=== PATIENT | male | born 1975 | race Caucasian/White ===

== ENCOUNTER → 2021-07-30 07:44 | Outpatient (BNVA) | payer OTHER, SELFPAY | PROVIDERS: PCP Internal Medicine; Visit Provider Psychiatry & Neurology Neurology | DX: G44.309 Post-traumatic headache, unspecified, not intractable (principal); M54.2 Cervicalgia; R42 Dizziness and giddiness; Z79.899 Other long term (current) drug therapy | CPT/HCPCS: 99202 ==

== ENCOUNTER → 2021-09-24 13:58 | Outpatient (BNVA) | payer OTHER, SELFPAY | PROVIDERS: PCP Internal Medicine; Visit Provider Nurse Practitioner Family | DX: R42 Dizziness and giddiness (principal) | CPT/HCPCS: 99212 ==

== ENCOUNTER → 2021-10-29 12:54 | Outpatient (BNVA) | payer OTHER, SELFPAY | PROVIDERS: PCP Internal Medicine; Visit Provider Nurse Practitioner Family | DX: G44.309 Post-traumatic headache, unspecified, not intractable (principal); R42 Dizziness and giddiness | CPT/HCPCS: 99212 ==

== ENCOUNTER → 2021-12-10 12:55 | Outpatient (BNVA) | payer OTHER, SELFPAY | PROVIDERS: PCP Internal Medicine; Visit Provider Nurse Practitioner Family | DX: R42 Dizziness and giddiness (principal); G44.309 Post-traumatic headache, unspecified, not intractable; M54.2 Cervicalgia | CPT/HCPCS: 99212 ==

== ENCOUNTER 2022-01-07 10:09 | Outpatient (REF) | payer OTHER, SELFPAY ==
--- NOTE | ~2022-01-07 | XR_ITS ---
EXAMINATION: CERVICAL SPINE 3 VIEWS CLINICAL INFORMATION: Pain status-post injury 7 months prior. COMPARISON: None. TECHNIQUE: Frontal, lateral and odontoid views are obtained. FINDINGS: Vertebral body heights and alignment are normal. The disc spaces are well-maintained. No acute fracture or spondylolisthesis is seen. The posterior elements are intact. There is no prevertebral soft tissue swelling. The dens and C7-T1 interface are normal. XR/XR cervical spine 2V IMPRESSION: Negative examination.
== END 2022-01-07 10:10 | disposition home or self-care (01) ==
LOC: HO.XRAY 10:09
PROVIDERS: Visit Provider Nurse Practitioner Family
DX: M54.2 Cervicalgia (principal); G44.309 Post-traumatic headache, unspecified, not intractable
CPT/HCPCS: 72040; 99212

== ENCOUNTER → 2022-03-18 10:49 | Outpatient (BNVA) | payer OTHER, SELFPAY | PROVIDERS: PCP Internal Medicine; Visit Provider Nurse Practitioner Family | DX: S06.0X9A Concussion with loss of consciousness of unspecified duration, initial encounter (principal); R42 Dizziness and giddiness; M54.2 Cervicalgia; R20.0 Anesthesia of skin; R20.2 Paresthesia of skin; G44.309 Post-traumatic headache, unspecified, not intractable | CPT/HCPCS: 99212 ==

== ENCOUNTER 2022-04-12 13:13 | Outpatient (REF) | payer OTHER, SELFPAY ==
--- NOTE | ~2022-04-12 | MR_ITS ---
EXAMINATION: MR CERVICAL SPINE WITHOUT CONTRAST CLINICAL INFORMATION: Dizziness, fall, neck pain COMPARISON: None TECHNIQUE: MRI of the cervical spine was obtained using routine sequences without contrast. FINDINGS: Normal anatomic alignment. No suspicious marrow signal or focal osseous lesion. C3 vertebral body hemangioma. The vertebral body heights are maintained. The intervertebral discs are of normal height and signal. The cervical spinal cord is normal in caliber and signal No prevertebral edema. The anterior and posterior discoligamentous structures are intact. Limited evaluation of the soft tissues of the neck without demonstrated abnormalities. The flow voids of the major cervical vessels are maintained. Normal appearance of the cervicomedullary junction and visualized posterior fossa. Sphenoid sinus mucosal thickening. SPINAL LEVELS: C2-C3: No significant spinal canal or neural foraminal narrowing C3-C4: Small disc protrusion. No significant spinal canal or neural foraminal narrowing C4-C5: Right greater than left uncovertebral hypertrophy and mild facet arthropathy. Mild to moderate right neural foraminal narrowing. No significant spinal canal stenosis. C5-C6: Small disc protrusion, right greater than left uncovertebral hypertrophy, and mild facet arthropathy. No significant spinal canal stenosis. Mild to moderate right neural foraminal narrowing. C6-C7: No significant spinal canal or neural foraminal narrowing C7-T1: Small left central disc protrusion. No significant spinal canal or neural foraminal narrowing MR/MR cervical spine wo con IMPRESSION: 1. No evidence of traumatic injury of the cervical spine. 2. Mild degenerative changes of the cervical spine as detailed above. No significant spinal canal stenosis, cord compression, cord signal abnormality, or high-grade neural foraminal narrowing.
== END 2022-04-12 13:14 | disposition home or self-care (01) ==
LOC: HO.MRI 13:13
PROVIDERS: Visit Provider Nurse Practitioner Family
DX: M54.2 Cervicalgia (principal); R42 Dizziness and giddiness; R20.2 Paresthesia of skin; R20.0 Anesthesia of skin
CPT/HCPCS: 72141

== ENCOUNTER → 2022-05-18 13:20 | Outpatient (BNVA) | payer OTHER, SELFPAY | PROVIDERS: PCP Internal Medicine; Visit Provider Nurse Practitioner Family | DX: M54.2 Cervicalgia (principal); G44.309 Post-traumatic headache, unspecified, not intractable; R42 Dizziness and giddiness | CPT/HCPCS: 99212 ==

== ENCOUNTER → 2022-06-27 14:15 | Outpatient (BNVA) | payer OTHER, SELFPAY | PROVIDERS: PCP Internal Medicine; Visit Provider Internal Medicine | DX: M54.2 Cervicalgia (principal); G44.309 Post-traumatic headache, unspecified, not intractable; S13.4XXD Sprain of ligaments of cervical spine, subsequent encounter | CPT/HCPCS: 99202 ==

== ENCOUNTER → 2022-07-18 14:37 | Outpatient (BNVA) | payer OTHER, SELFPAY | PROVIDERS: PCP Internal Medicine; Visit Provider Nurse Practitioner Family | DX: F07.81 Postconcussional syndrome (principal); G44.309 Post-traumatic headache, unspecified, not intractable; M54.2 Cervicalgia; R42 Dizziness and giddiness; R20.0 Anesthesia of skin; R20.2 Paresthesia of skin | CPT/HCPCS: 99212 ==

== ENCOUNTER → 2022-08-01 14:23 | Outpatient (BNVA) | payer OTHER, SELFPAY | PROVIDERS: PCP Internal Medicine; Visit Provider Internal Medicine | DX: M47.812 Spondylosis without myelopathy or radiculopathy, cervical region (principal); S13.4XXA Sprain of ligaments of cervical spine, initial encounter | CPT/HCPCS: 99212 ==

== ENCOUNTER 2022-08-31 06:04 | Outpatient (REF) | payer OTHER, SELFPAY ==
--- NOTE | ~2022-08-31 | FL_ITS ---
EXAMINATION: XR FLUOROSCOPY WITH IMAGES CLINICAL INFORMATION: Spondylosis without myelopathy or radiculopathy cervical region. COMPARISON: None available. TECHNIQUE: Fluoroscopy Supervised By: Dr. Pratik Root. Fluoroscopy Time: 0.1. Cumulative Dose: 2 mGy. DAP: 0.2 Gy-cm2. Images: 2. FINDINGS: 2 images demonstrate needle placement and contrast injection adjacent to the left lateral cervical spine. FL/FL guidance in treatment room IMPRESSION: Fluoroscopy guidance for pain management procedure.
== END 2022-08-31 06:05 | disposition home or self-care (01) ==
LOC: CF 06:04
PROVIDERS: Visit Provider Internal Medicine
DX: M47.812 Spondylosis without myelopathy or radiculopathy, cervical region (principal)
CPT/HCPCS: 64490; 64491

== ENCOUNTER → 2022-09-02 09:07 | Outpatient (BNVA) | payer OTHER, SELFPAY | PROVIDERS: PCP Internal Medicine; Visit Provider Internal Medicine | DX: M47.812 Spondylosis without myelopathy or radiculopathy, cervical region (principal); Z98.890 Other specified postprocedural states | CPT/HCPCS: 99212 ==

== ENCOUNTER → 2022-09-22 14:27 | Outpatient (BNVA) | payer OTHER, SELFPAY | PROVIDERS: PCP Internal Medicine; Visit Provider Nurse Practitioner Family | DX: G44.309 Post-traumatic headache, unspecified, not intractable (principal); R42 Dizziness and giddiness; M54.2 Cervicalgia; G47.9 Sleep disorder, unspecified | CPT/HCPCS: 99212 ==

== ENCOUNTER → 2022-10-14 10:45 | Outpatient (BNVA) | payer OTHER, SELFPAY | PROVIDERS: PCP Internal Medicine; Visit Provider Internal Medicine | DX: M47.812 Spondylosis without myelopathy or radiculopathy, cervical region (principal); Z79.899 Other long term (current) drug therapy | CPT/HCPCS: 99212 ==

== ENCOUNTER 2022-11-18 09:53 | Outpatient (AMB) | payer OTHER, SELFPAY ==
--- NOTE | 2022-11-18 09:53 | MHC.OFFVIS ---
Intake Intake Visit Reasons: discuss RFA Allergies No Known Allergies Allergy (Verified 10/14/22 10:59) HPI discuss RFA HPI Details 47-year-old male presenting on tele health visit for discussion of RFA of cervical medial branches. He still continues to endorse neck pain (more on the left side than the right side). Past procedure: 08/31/2022: left diagnostic C3-C4-C5 MBB: 60% relief for about three hours. PFSH Medical History Concussion Surgical History H/O hernia repair Family History Mother Cancer Social History Alcohol intake: current Alcohol intake frequency: a few times a week Alcohol type: beer, wine and hard liquor Patient Tobacco Use Status: Former Tobacco user Substance Use Type: Caffiene Review of Systems Const All systems reviewed & are unremarkable except as noted in HPI and below Results Reviewed Results Reviewed: No imaging is available for review. Assessment & Plan Assessment & Plan (1) Cervical facet joint syndrome: Code(s): M47.812 - Spondylosis without myelopathy or radiculopathy, cervical region Plan We will seek approval for repeat bilateral diagnostic C3-C4-C5 cervical medial branch blocks to establish reproducibility prior to proceeding with radiofrequency ablation of the cervical medial branches. Once we have obtained approval, we will schedule the patient for the aforementioned procedure. The patient is in agreement with the plan. Justification for interventional therapy: ? Patient with average pain > 6/10 ? Patient has exhausted conservative therapy . First diagnostic injection on the left side provided 60% relief for >[address] Root by Martinez Roblero, nuclear medicine medical director, on 11/18/2022. I, Dr. Root, have personally reviewed and agree with the information entered by the scribe. Telehealth Telehealth Location of provider rendering services: practice address Location of patient: address on file Patient Identification confirmed using: Name, : Yes Telehealth method: voice only Patient verbally consented to treatment: Yes Patient verbally consented to billing insurance company: Yes Patient informed of any privacy concerns related to visit: Yes Minutes spent on Phone/Video with Pt.: 7 Coding Level of Care Code Tele New Pt Level 3 (03066) Diagnoses Cervical facet joint syndrome M47.812
== END 2022-11-18 09:54 | disposition home or self-care (01) ==
LOC: HO.PMC 09:53
PROVIDERS: PCP Internal Medicine; Visit Provider Internal Medicine
DX: M47.812 Spondylosis without myelopathy or radiculopathy, cervical region (principal)
CPT/HCPCS: 99213

== ENCOUNTER → 2022-11-18 09:53 | Outpatient (BNVA) | payer OTHER, SELFPAY | PROVIDERS: PCP Internal Medicine; Visit Provider Internal Medicine ==

== ENCOUNTER 2022-12-28 06:05 | Outpatient (REF) | payer OTHER, SELFPAY ==
--- NOTE | ~2022-12-28 | FL_ITS ---
EXAMINATION: XR FLUOROSCOPY WITH IMAGES CLINICAL INFORMATION: Spondylosis without myelopathy or radiculopathy, cervical region. Bilateral cervical injection. COMPARISON: None available. TECHNIQUE: Fluoroscopy Supervised By: Dr. Pratik Root. Fluoroscopy Time: 0.4 minutes. Cumulative Dose: 3.89 mGy. DAP: 0.4446 Gycm2. Images: 4. FINDINGS: Images demonstrate needle placement and contrast injection adjacent to the bilateral lateral C3-C4 and C5 vertebrae FL/FL guidance in treatment room IMPRESSION: Fluoroscopy guidance for pain management procedure
== END 2022-12-28 06:06 | disposition home or self-care (01) ==
LOC: CF 06:05
PROVIDERS: Visit Provider Internal Medicine
DX: M47.812 Spondylosis without myelopathy or radiculopathy, cervical region (principal)
CPT/HCPCS: 64490; 64491

== ENCOUNTER 2022-12-28 08:30 | Outpatient (AMB) | payer OTHER, SELFPAY ==
[2022-12-28 08:35] VITALS: BP 122/88; PULSE 81; RESP 14; O2SAT 97
--- NOTE | 2022-12-28 08:35 | MHC.OFFVIS ---
Intake Vital Signs 12/28/22 08:35 12/28/22 09:37 BP 122/88 122/82 Blood Pressure Location Rt brachial Rt brachial Position Sitting Sitting Respiration 14 14 Pulse 81 81 Pulse Source Pulse Oximeter Pulse Oximeter Pulse Oximetry (%) 97 97 Oxygen Delivery Method Room Air Room Air Intake Visit Reasons: Tam Dx C3-C4-C5 MBB Allergies No Known Allergies Allergy (Verified 12/28/22 08:36) HPI Tam Dx C3-C4-C5 MBB HPI Details Patient presents for scheduled procedure. Denies any recent cough, cold, infection, fever or other significant changes in medical history since last office visit. PFSH Medical History Concussion Surgical History H/O hernia repair Family History Mother Cancer Social History Alcohol intake: current Alcohol intake frequency: a few times a week Alcohol type: beer, wine and hard liquor Patient Tobacco Use Status: Former Tobacco user Substance Use Type: Caffiene Physical Exam Vital Signs: Last Vital Signs Pulse 81 12/28/22 09:37 Resp 14 12/28/22 09:37 BP 122/82 12/28/22 09:37 Pulse Ox 97 12/28/22 09:37 Oxygen Delivery Method Room Air 12/28/22 09:37 Office Procedures Cervical/Thoracic Facet Inj Details: Diagnostic Cervical Medial Branch Block, Bilateral C3, C4, C5 medial branches After obtaining written consent, pre-procedure blood pressure and pulse were recorded and are in the nursing record for review. The patient was placed in a lateral position. The respective cervical area was prepped with chloraprep and draped in sterile fashion. The skin over the target medial branch nerves was anesthetized with 0.5% lidocaine. A 25 gauge 1.5 inch needle was inserted into the target medial branch nerve under fluoroscopic guidance. No paresthesias were elicited with needle placement and aspiration was negative for blood and CSF. Next, 0.2cc of Isovue 300 was injected to verify positioning. Next 0.5 ml 0.5% ropivicaine was injected (0.5 cc total per level). The identical procedure was performed at the remaining levels. The skin was cleansed and a sterile bandage was applied. Following the procedure the patient's vital signs were stable. The patient tolerated the procedure well and no complications were encountered. Following the procedure the patient's vital signs were stable. The patient was discharged home in good condition with post-procedural instructions. Time Out: Immediately prior to the procedure, the following was verbally confirmed that there is a signed consent form and that the correct patient, planned procedure, site and side are consistent with documentation and that necessary equipment and/or blood products are available prior to the start of the case. Complications: none EBL: <5 cc 45411 - second level, with Fluoroscopy Procedure code (CPT) selection complete Assessment & Plan Assessment & Plan (1) Cervical facet joint syndrome: Code(s): M47.812 - Spondylosis without myelopathy or radiculopathy, cervical region Plan Patient is status post bilateral diagnostic cervical C3, C4, C5 MBBs. Patient tolerated procedure well and was discharged home in stable condition with discharge instructions. All questions were answered. We will follow-up via telephone or in clinic to assess response to therapy. A follow-up appointment was made during today's visit. Orders: Orders FL guidance in treatment room Today M47.812 - Spondylosis without myelopathy or radiculopathy, cervical region Coding Level of Care Code Procedure Only Diagnoses Cervical facet joint syndrome M47.812 CPT Codes Facet Injection Cervical/Thoracic - CPT: 14682 - second level, with Fluoroscopy ([id number])
[2022-12-28 09:37] VITALS: BP 122/82; PULSE 81; RESP 14; O2SAT 97
== END 2022-12-28 09:41 | disposition home or self-care (01) ==
LOC: HO.PMCPRC 08:30
PROVIDERS: PCP Internal Medicine; Visit Provider Internal Medicine
DX: M47.812 Spondylosis without myelopathy or radiculopathy, cervical region (principal)
CPT/HCPCS: 64490; 64491

== ENCOUNTER 2022-12-30 11:39 | Outpatient (AMB) | payer OTHER, SELFPAY ==
[2022-12-30 11:53] VITALS: BP 98/64; PULSE 101; RESP 14; O2SAT 98; BMI 29.0
--- NOTE | 2022-12-30 11:53 | MHC.OFFVIS ---
Intake Vital Signs 12/30/22 11:53 Height 6 ft Weight 214 lb BMI 29.0 BP 98/64 Blood Pressure Location Lt brachial Position Sitting Respiration 14 Pulse 101 H Pulse Source Pulse Oximeter Pulse Oximetry (%) 98 Oxygen Delivery Method Room Air Intake Visit Reasons: s/p janell Dx C3-C4-C5 MBB Allergies No Known Allergies Allergy (Verified 12/28/22 08:36) HPI s/p janell Dx C3-C4-C5 MBB HPI Details 47-year-old male is presenting today for a status post bilateral diagnostic C3-C4-C5 MBB. The patient reports 90% relief following the procedure for 8 hours. He reports return of sharp pain with side ways movements the following day. Past procedures: 12/28/22: Diagnostic Cervical Medial Branch Block, Bilateral C3, C4, C5 medial branches: >90% relief for 8 hours. 08/31/2022: Left diagnostic C3-C4-C5 MBB: 60% relief for about three hours. [facility] Medical History Concussion Surgical History H/O hernia repair Family History Mother Cancer Social History ) Alcohol intake: current Alcohol intake frequency: a few times a week Alcohol type: beer, wine and hard liquor Patient Tobacco Use Status: Former Tobacco user Substance Use Type: Caffiene Review of Systems Const All systems reviewed & are unremarkable except as noted in HPI and below Physical Exam Vital Signs: Last Vital Signs Pulse 101 H 12/30/22 11:53 Resp 14 12/30/22 11:53 BP 98/64 12/30/22 11:53 Pulse Ox 98 12/30/22 11:53 Oxygen Delivery Method Room Air 12/30/22 11:53 BMI result Body Mass Index 29.0 General: Appears afebrile. Alert and oriented. Mood and affect appropriate. Follows and participates in conversation appropriately. Respiratory effort is unlabored. Able to transition from sit to stand unassisted. Ambulates with bilaterally normal heel strike and toe off. Results Reviewed Results Reviewed: No imaging is available for review. Assessment & Plan Assessment & Plan (1) Cervical facet joint syndrome: Code(s): M47.812 - Spondylosis without myelopathy or radiculopathy, cervical region Plan Will schedule him for Left C3-C4-C5 medial branch RFA. Discussed the risks and benefits of the procedure with the patient in detail. All questions were answered. The patient is on board with the plan. We will file a PA for approval and keep him updated. Justification for interventional therapy: ? Patient with average pain > 6/10 ? Patient has exhausted conservative therapy including physical therapy, neuropathic medications, muscle relaxants and acetaminophen . Left-sided diagnostic injection provided 60% relief for >3 hours and bilateral diagnostic injections provided 90% relief for [address]. [address] Root by Martinez Roblero, director medical affairs, on 12/30/2022. I, Dr. Root, have personally reviewed and agree with the information entered by the scribe. Coding Level of Care Code Est Pt Level 3 (74523) Diagnoses Cervical facet joint syndrome M47.812
== END 2022-12-30 12:00 | disposition home or self-care (01) ==
PROVIDERS: PCP Internal Medicine; Visit Provider Internal Medicine
DX: M47.812 Spondylosis without myelopathy or radiculopathy, cervical region (principal)
CPT/HCPCS: 99213

== ENCOUNTER → 2022-12-30 11:39 | Outpatient (BNVA) | payer OTHER, SELFPAY | PROVIDERS: PCP Internal Medicine; Visit Provider Internal Medicine | DX: M47.812 Spondylosis without myelopathy or radiculopathy, cervical region (principal) | CPT/HCPCS: 99212 ==

== ENCOUNTER → 2023-01-23 14:30 | Outpatient (BNVA) | payer OTHER, SELFPAY | PROVIDERS: Visit Provider Nurse Practitioner Family | DX: G44.309 Post-traumatic headache, unspecified, not intractable (principal); R42 Dizziness and giddiness; M54.2 Cervicalgia; Z79.899 Other long term (current) drug therapy | CPT/HCPCS: 99212 ==

== ENCOUNTER 2023-02-08 12:42 | Day surgery (SDC) | payer OTHER, SELFPAY ==
--- NOTE | ~2023-02-08 | FL_ITS ---
EXAMINATION: XR FLUOROSCOPY WITH IMAGES CLINICAL INFORMATION: C3-C5 medial branch RFA. COMPARISON: None available. TECHNIQUE: Fluoroscopy Supervised By: Dr. Pratik Root. Fluoroscopy Time: 0.6 minutes. Cumulative Dose: 15.6 mGy. DAP: 1.69 Gycm2. Images: 3. FINDINGS: Images demonstrate instruments projecting over the posterior elements of C3, C4 and C5 FL/FL guidance in OR IMPRESSION: Fluoroscopy guidance for pain management procedure
[2023-02-08 13:09] VITALS: BP 122/78; PULSE 106; RESP 18; TEMP 36.2; O2SAT 96; BMI 28.5
--- NOTE | 2023-02-08 14:01 | MHC.SHP ---
Pre-Procedural Eval Section A Date of Service: 02/08/23 The patient is an INPATIENT: No Changes since office visit: Yes Patient answered all questions The History & Physical has been completed within 30 days and I have reviewed it.: No Section B Chief Complaint: Spondylosis without myelopathy or radiculopathy, Relevant Family History (Specify if Yes): No Relevant Social History: None Present Medications: see Short Stay Collaborative assessment Medical History: Significant History (cervical facet syndrome) History of Previous Operations: No relevant previous surgery Allergies: Allergies Allergy/AdvReac Type Severity Reaction Status Date / Time No Known Allergies Allergy Verified 12/28/22 08:36 Review of Systems Sugical H&P ROS: Negative: Constitution, Cardiovascular and Respiratory Exam Surgical H&P Exam: Normal: HEENT, Normal: Heart and Normal: Lungs Plan Diagnosis/Plan: Unchanged I have reviewed the history and physical and performed a pertinent physical examination on my patient. No changes have occurred unless specified. Time Spent With Patient Time: Total time managing care of this patient today ____ minutes.
--- NOTE | 2023-02-08 14:02 | PM.OP ---
Brief Operative Note Date of Service: 02/08/23 Pre-op diagnosis: Cervical spondylosis, cervical facet syndrome Post-op diagnosis: same Procedure: Radiofrequency lesioning cervical medial branch nerves, left C3, C4 and C5 Implants: None Surgeon: Pratik Root MD Anesthesia: local Was an Desktop Publishing Operator used for this Procedure?: No Estimated blood loss (mL): 1 Pathology: none sent Condition: stable Disposition: same day
--- NOTE | 2023-02-08 14:02 | W.PM.OPN ---
Operative Note Operative Note Date of Service: 02/08/23 Narrative: Radiofrequency lesioning cervical medial branch nerves, Left C3, C4 and C5 After obtaining written consent, pre-procedure blood pressure and heart rate were stable and recorded in the nursing record. The patient was placed in the prone position. The?cervical?area was prepped with chloraprep and draped in sterile fashion. The skin over the target for each medial branch nerve was anesthetized with 0.75% lidocaine. An 18 gauge radiofrequency cannula was advanced to each target site under fluoroscopic guidance. No paresthesias were elicited with needle placement and aspiration was negative for heme and CSF. Impedences were verified under 600 ohms. Sensory testing (50 Hz) and then motor testing (2 Hz) confirmed needle placement at each site within the appropriate voltage thresholds. Each site was injected with 0.5 ml 2% preservative-free lidocaine. Radiofrequency lesioning was performed for 90 seconds at 80 deg Celcius. The needle was removed, skin cleansed and a sterile bandage was applied. The patient tolerated the procedure well and no complications were encountered. Following the procedure the patient's vital signs were stable. The patient was discharged home in good condition with post-procedural instructions. Time Out: Immediately prior to the procedure, the following was verbally confirmed that there is a signed consent form and that the correct patient, planned procedure, site and side are consistent with documentation and that necessary equipment and/or blood products are available prior to the start of the case. Complications: none EBL: <5 cc
[2023-02-08 14:50] VITALS: BP 126/88; PULSE 73; RESP 14; TEMP 36.8; O2SAT 95
== END 2023-02-08 15:11 | disposition home or self-care (01) ==
PROVIDERS: PCP Internal Medicine; Visit Provider Internal Medicine
PROC: (CPT 64633; principal; 2023-02-08 14:20)
DX: M47.812 Spondylosis without myelopathy or radiculopathy, cervical region (principal); Z87.820 Personal history of traumatic brain injury; Z98.890 Other specified postprocedural states; Z87.891 Personal history of nicotine dependence
CPT/HCPCS: 64633; 64634; J2795

== ENCOUNTER → 2023-02-08 12:42 | Outpatient (BNV) | payer OTHER, SELFPAY | PROVIDERS: PCP Internal Medicine; Visit Provider Internal Medicine | DX: M47.812 Spondylosis without myelopathy or radiculopathy, cervical region (principal) | CPT/HCPCS: 64490; 64491 ==

== ENCOUNTER 2023-03-10 08:10 | Outpatient (AMB) | payer OTHER, SELFPAY ==
--- NOTE | 2023-03-10 08:21 | MHC.OFFVIS ---
Intake Vital Signs 03/10/23 08:22 Height 6 ft Weight 226 lb 4 oz BMI 30.7 BP 127/63 Blood Pressure Location Lt brachial Position Sitting Respiration 18 Pulse 88 Pulse Source Pulse Oximeter Pulse Oximetry (%) 98 Oxygen Delivery Method Room Air Intake Visit Reasons: s/p Left C3-C4-C5 MB RFA/confirmed Allergies No Known Allergies Allergy (Verified 03/10/23 08:22) HPI HPI Comments History of Present Illness Details Nick is a very pleasant 47-year-old male who presents to the office today status post left C3-C4-C5 RFA 02/08/23. The patient reports 90% relief with improvement in movement and function. He continues with pain to on the right side of his neck, worse with lateral flexion. He also suffers from tinnitus of the left ear that has not changed since the RFA. Past procedures: 02/08/23: left C3-C4-C5 RFA: 90% pain relief 12/28/22: Diagnostic Cervical Medial Branch Block, Bilateral C3, C4, C5 medial branches: >90% relief for 8 hours. 08/31/2022: Left diagnostic C3-C4-C5 MBB: 60% relief for about three hours. [facility] Medical History Concussion Surgical History H/O hernia repair Family History Mother Cancer Social History Alcohol intake: current Alcohol intake frequency: a few times a week Alcohol type: beer, wine and hard liquor Patient Tobacco Use Status: Former Tobacco user Substance Use Type: Caffiene Review of Systems Const All systems reviewed & are unremarkable except as noted in HPI and below Physical Exam Vital Signs: Last Vital Signs Pulse 88 03/10/23 08:22 Resp 18 03/10/23 08:22 BP 127/63 03/10/23 08:22 Pulse Ox 98 03/10/23 08:22 Oxygen Delivery Method Room Air 03/10/23 08:22 BMI result Body Mass Index 30.7 General: awake, alert, oriented. Answers questions appropriately. Fully engaged in examination. Skin: warm, dry, intact HEENT: Normocephalic. Hearing intact. Cardiac: External chest normal in appearance. Respiratory: No cough, audible wheezing or stridor. Abdomen: without gross distension. MS: Cervical: pain increase with right lateral flexion Neurological: Oriented to person, place, time and situation. Thought process intact. No gait abnormalities appreciated. Psychiatric: Appropriate mood and affect. Good judgment and insight. Assessment & Plan Assessment & Plan (1) Cervical facet joint syndrome: Code(s): M47.812 - Spondylosis without myelopathy or radiculopathy, cervical region Plan Nick is a very pleasant 48 year old male who presented to the office today for follow up status post left C3 C4 C5 RFA. Patient reports 90% pain relief with improvement in function and mobility since the procedure. Discussed return to full duty, patient works for the [email or web address]. Currently has no contact with inmate order due to the injury he sustained on his neck. Recommend continuing on no contact with inmate order until he follows up with Dr Root. Follow up with Dr. Root in 1 month, sooner if needed. Coding Level of Care Code Est Pt Level 3 (74348) Diagnoses Cervical facet joint syndrome M47.812
[2023-03-10 08:22] VITALS: BP 127/63; PULSE 88; RESP 18; O2SAT 98; BMI 30.7
== END 2023-03-10 08:31 | disposition home or self-care (01) ==
PROVIDERS: PCP Internal Medicine; Visit Provider Registered Nurse Emergency
DX: M47.812 Spondylosis without myelopathy or radiculopathy, cervical region (principal)
CPT/HCPCS: 99213

== ENCOUNTER → 2023-03-10 08:10 | Outpatient (BNVA) | payer OTHER, SELFPAY | PROVIDERS: PCP Internal Medicine; Visit Provider Registered Nurse Emergency | DX: M47.812 Spondylosis without myelopathy or radiculopathy, cervical region (principal); H93.12 Tinnitus, left ear; F07.81 Postconcussional syndrome; Z87.891 Personal history of nicotine dependence | CPT/HCPCS: 99212 ==

== ENCOUNTER 2023-04-14 09:13 | Outpatient (AMB) | payer OTHER, SELFPAY ==
--- NOTE | 2023-04-14 09:16 | MHC.OFFVIS ---
Intake Vital Signs 04/14/23 09:18 Height 6 ft Weight 218 lb BMI 29.6 BP 134/83 Blood Pressure Location Lt brachial Position Sitting Respiration 12 Pulse 80 Pulse Source Pulse Oximeter Pulse Oximetry (%) 99 Oxygen Delivery Method Room Air Intake Visit Reasons: 1 MONTH FOLLOW UP/LVM Allergies No Known Allergies Allergy (Verified 04/14/23 09:19) Medication List - Last Reconciled 04/14/23 by Little Omalley LPN acetaminophen (Tylenol) 325 mg PO QID PRN amitriptyline 50 mg PO BEDTIME 30 days cyclobenzaprine 5 mg PO BEDTIME magnesium oxide 400 mg PO DAILY 30 days melatonin 3 - 6 mg (1 - 2 x 3 mg) PO BEDTIME 90 days ondansetron 4 mg PO Q8H 30 days vitamin B comp and C no.3 (B Complex Plus Vitamin C) 1 cap PO DAILY HPI 1 MONTH FOLLOW UP/LVM HPI Details 48-year-old male who presents today to the office for a follow-up. The patient reports moderate relief in left sided symptoms following the procedure. He has been experiencing mild numbness and pain at the site. The patient's pain is different from the pain prior to the procedure. He states that his sharp pain has improved but that he continues to experience constant pain on his sides. His right side is more bothersome. His pain is better at the start of the day but progresses over the course of the day. He is taking cyclobenzaprine with minimal benefit. He is not performing any physical therapy or home exercises. He either sleeps on his back or on his sides. Past procedures: 02/08/23: Radiofrequency lesioning cervical medial branch nerves, Left C3, C4 and C5: 50% relief. 12/28/22: Diagnostic Cervical Medial Branch Block, Bilateral C3, C4, C5 medial branches: >90% relief for 8 hours. 08/31/2022: Left diagnostic C3-C4-C5 MBB: 60% relief for about three hours. [facility] Medical History Concussion Surgical History H/O hernia repair Family History Mother Cancer Social History (Reviewed 09/22/22 @ 14:34 by Lissett Anderson Alcohol intake: current Alcohol intake frequency: a few times a week Alcohol type: beer, wine and hard liquor Patient Tobacco Use Status: Former Tobacco user Substance Use Type: Caffiene Review of Systems Const All systems reviewed & are unremarkable except as noted in HPI and below Physical Exam Vital Signs: Last Vital Signs Pulse 80 04/14/23 09:18 Resp 12 04/14/23 09:18 BP 134/83 04/14/23 09:18 Pulse Ox 99 04/14/23 09:18 Oxygen Delivery Method Room Air 04/14/23 09:18 BMI result Body Mass Index 29.6 General: Appears afebrile. Alert and oriented. Mood and affect appropriate. Follows and participates in conversation appropriately. Respiratory effort is unlabored. Able to transition from sit to stand unassisted. Ambulates with bilaterally normal heel strike and toe off. Cervical extension is limited and reproduces pain in the midline. Cervical facet loading reproduces pain on the right side and around the shoulder area and left side of the occipital region. Results Reviewed Results Reviewed: No imaging is available for review. Assessment & Plan Assessment & Plan (1) Cervical facet joint syndrome: Code(s): M47.812 - Spondylosis without myelopathy or radiculopathy, cervical region Plan We discussed trying lifestyle modification as a possible treatment option for the pain. I recommended trying good pillows and mattresses at night. Also, it is advised to perform gentle cervical arching and traction exercises at home. The patient will follow up in a month. If these measures fail, we can consider a round of MBBs/RFA on the right and potentially PNS on the left depending on which side is worse. Cervical facet PRP injections would be another option. Scribed for Dr. Root by Martinez Roblero, certified ophthalmic medical technician, on 04/14/2023. I, Dr. Root, have personally reviewed and agree with the information entered by the scribe. Coding Level of Care Code Est Pt Level 3 (74202) Diagnoses Cervical facet joint syndrome M47.812
[2023-04-14 09:18] VITALS: BP 134/83; PULSE 80; RESP 12; O2SAT 99; BMI 29.6
== END 2023-04-14 09:47 | disposition home or self-care (01) ==
PROVIDERS: PCP Internal Medicine; Visit Provider Internal Medicine
DX: M47.812 Spondylosis without myelopathy or radiculopathy, cervical region (principal)
CPT/HCPCS: 99213

== ENCOUNTER → 2023-04-14 09:13 | Outpatient (BNVA) | payer OTHER, SELFPAY | PROVIDERS: PCP Internal Medicine; Visit Provider Internal Medicine | DX: M47.812 Spondylosis without myelopathy or radiculopathy, cervical region (principal) | CPT/HCPCS: 99212 ==

== ENCOUNTER 2023-05-19 09:52 | Outpatient (AMB) | payer OTHER, SELFPAY ==
--- NOTE | 2023-05-19 09:59 | MHC.OFFVIS ---
Intake Vital Signs 05/19/23 10:00 Height 6 ft Weight 220 lb BMI 29.8 BP 146/98 H Blood Pressure Location Lt radial Position Sitting Respiration 12 Pulse 100 Pulse Source Pulse Oximeter Pulse Oximetry (%) 98 Oxygen Delivery Method Room Air Intake Visit Reasons: 1 Month Follow Up/confirmed Allergies No Known Allergies Allergy (Verified 05/19/23 10:01) Medication List - Last Reconciled 05/19/23 by Little Omalley LPN acetaminophen (Tylenol) 325 mg PO QID PRN amitriptyline 50 mg PO BEDTIME 30 days cyclobenzaprine 5 mg PO BEDTIME magnesium oxide 400 mg PO DAILY 30 days melatonin 3 - 6 mg (1 - 2 x 3 mg) PO BEDTIME 90 days ondansetron 4 mg PO Q8H 30 days vitamin B comp and C no.3 (B Complex Plus Vitamin C) 1 cap PO DAILY HPI 1 Month Follow Up/confirmed HPI Details 48-year-old male who presents today to the office for a one-month follow-up. His neck pain has significantly improved. He has noticed mild numbness since RFA, which is not bothersome. He started using the neck extension device with good benefit. 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 He avoids sudden movements of the neck at work. He has worker's compensation insurance. His nerve stimulator was denied by [employer] in the past. He still has tinnitus, which has not improved. He also noticed mild, occasional headaches and memory issues. Past procedures: 02/08/23: Radiofrequency lesioning cervical medial branch nerves, Left C3, C4 and C5: 50% to 60% relief ongoing. 12/28/22: Diagnostic Cervical Medial Branch Block, Bilateral C3, C4, C5 medial branches: >90% relief for 8 hours. 08/31/2022: Left diagnostic C3-C4-C5 MBB: 60% relief for about three hours. [facility] Medical History Concussion Surgical History H/O hernia repair Family History Mother Cancer Social History Alcohol intake: current Alcohol intake frequency: a few times a week Alcohol type: beer, wine and hard liquor Patient Tobacco Use Status: Former Tobacco user Substance Use Type: Caffiene Review of Systems Const All systems reviewed & are unremarkable except as noted in HPI and below Physical Exam Vital Signs: Last Vital Signs Pulse 100 05/19/23 10:00 Resp 12 05/19/23 10:00 BP 146/98 H 05/19/23 10:00 Pulse Ox 98 05/19/23 10:00 Oxygen Delivery Method Room Air 05/19/23 10:00 BMI result Body Mass Index 29.8 General: Appears afebrile. Alert and oriented. Mood and affect appropriate. Follows and participates in conversation appropriately. Respiratory effort is unlabored. Able to transition from sit to stand unassisted. Ambulates with bilaterally normal heel strike and toe off. Results Reviewed Results Reviewed: No imaging is available for review. Assessment & Plan Assessment & Plan (1) Cervical facet joint syndrome: Code(s): M47.812 - Spondylosis without myelopathy or radiculopathy, cervical region Plan At this time his pain symptoms of the neck are relatively well-controlled. He never got full relief but is satisfied with his current pain level. For his symptoms that may start to worsen in the future, we discussed trying PRP injections to the cervical facets as a possible treatment option for cervical facet syndrome at a young age. The patient will reach out to us if he wants to schedule it. Follow as needed. Scribed for Dr. Root by Martinez Roblero, medical lab scientist, on 05/19/2023. I, Dr. Root, have personally reviewed and agree with the information entered by the scribe. Coding Level of Care Code Est Pt Level 3 (28271) Diagnoses Cervical facet joint syndrome M47.812
[2023-05-19 10:00] VITALS: BP 146/98; PULSE 100; RESP 12; O2SAT 98; BMI 29.8
== END 2023-05-19 10:23 | disposition home or self-care (01) ==
PROVIDERS: PCP Internal Medicine; Visit Provider Internal Medicine
DX: M47.812 Spondylosis without myelopathy or radiculopathy, cervical region (principal)
CPT/HCPCS: 99213

== ENCOUNTER → 2023-05-19 09:52 | Outpatient (BNVA) | payer OTHER, SELFPAY | PROVIDERS: PCP Internal Medicine; Visit Provider Internal Medicine | DX: M47.812 Spondylosis without myelopathy or radiculopathy, cervical region (principal) | CPT/HCPCS: 99212 ==

== ENCOUNTER 2023-06-15 14:33 | Outpatient (AMB) | payer OTHER, SELFPAY ==
--- NOTE | 2023-06-15 14:53 | A.OFFVIS_ITS ---
Intake Vital Signs 06/15/23 14:56 Height 6 ft Weight 226 lb BMI 30.6 BP 120/80 Blood Pressure Location Lt brachial Position Sitting Pulse 94 Pulse Source Pulse Oximeter Pulse Oximetry (%) 96 Oxygen Delivery Method Room Air Intake Visit Reasons: 4 month follow up - LVM Intake Note: Patient presents for 4 month f/u. Allergies No Known Allergies Allergy (Verified 05/19/23 10:01) HPI HPI Comments History of Present Illness Details 47 y/o male patient presents for follow up of post concussion syndrome and cervicalgia. Pt reports that his headache and neck pain has not improved, having daily frontal and left occipital tension headache. And the tension headache can be triggered by lateral neck movement and noise. He uses Excedrin for headache treatment, but not using everyday. He is followed by pain management for neck pain. Pt states that neck pain still not fully relieved but more manageble. He is on amitriptyline 50 mg and cyclobenzaprine 5 mg qHS. Pt also takes magnesium 400 mg and vitmain B complex for migraine prevention. Pt reports that melatonin 3 mg helps him sleep better. He still has constant tinnitus, vestibular therapy was not helpful. [facility] Medical History Concussion Surgical History H/O hernia repair Family History Mother Cancer Social History Alcohol intake: current Alcohol intake frequency: a few times a week Alcohol type: beer, wine and hard liquor Patient Tobacco Use Status: Former Tobacco user Substance Use Type: Caffiene Review of Systems Const All systems reviewed & are unremarkable except as noted in HPI and below Physical Exam Vital Signs: Last Vital Signs Pulse 94 06/15/23 14:56 BP 120/80 06/15/23 14:56 Pulse Ox 96 06/15/23 14:56 Oxygen Delivery Method Room Air 06/15/23 14:56 BMI result Body Mass Index 30.6 Const General: cooperative and no acute distress Nutritional Appearance: obese Orientation/consciousness: patient oriented x3 Neck Other: moderate tightness of bilateral trapezius muscle and pain with lateral movement. Semispinalis Capitis muscle tenderness. L>R Neck: Yes full ROM and Yes supple Resp Effort & Inspection: normal respiratory effort and able to speak in complete sentences Neuro General: patient oriented x3 and CN's II-XI intact bilaterally Cognition (Neuro): normal cognition Gait exam (Neuro): Normal gait present Motor exam (neuro): 5/5 motor strength present throughout Psych Appearance: grossly normal Mental Status: mental status grossly normal Speech and movement: Normal speech and movement present Attitude: cooperative Assessment & Plan Assessment & Plan (1) Cervicalgia: Code(s): M54.2 - Cervicalgia (2) Post-concussion headache: Code(s): G44.309 - Post-traumatic headache, unspecified, not intractable Plan Advised patient to continue to take cyclobenzaprine 5 mg qHS for neck muscle tightness and pain. Continue to take amitirptyline to 50 mg. Continue to take magnesium 400 mg qHS, vitamin B2 400 mg qdaily for headache prevention. Will try topiramate 25 mg BID for headache prevention. Continue to follow up with pain management. Continue to practice good sleep hygiene. Continue melatonin 3 mg qHS. Medications: New topiramate 25 mg PO BID 60 tabs 4RF 30 days Coding Level of Care Code Est Pt Level 4 (87749) Diagnoses Cervicalgia M54.2 Post-concussion headache G44.309
[2023-06-15 14:56] VITALS: BP 120/80; PULSE 94; O2SAT 96; BMI 30.6
== END 2023-06-15 15:22 | disposition home or self-care (01) ==
PROVIDERS: PCP Internal Medicine; Visit Provider Nurse Practitioner Family
DX: M54.2 Cervicalgia (principal); G44.309 Post-traumatic headache, unspecified, not intractable
CPT/HCPCS: 99214

== ENCOUNTER → 2023-06-15 14:33 | Outpatient (BNVA) | payer OTHER, SELFPAY | PROVIDERS: PCP Internal Medicine; Visit Provider Nurse Practitioner Family | DX: M54.2 Cervicalgia (principal); G44.309 Post-traumatic headache, unspecified, not intractable; Z79.899 Other long term (current) drug therapy | CPT/HCPCS: 99212 ==

== ENCOUNTER 2023-10-18 14:30 | Outpatient (AMB) | payer OTHER, SELFPAY ==
[2023-10-18 14:32] VITALS: BP 128/92; PULSE 100; O2SAT 96; BMI 29.6
--- NOTE | 2023-10-18 14:32 | MHC.OFFVIS ---
Vital Signs 10/18/23 14:32 Height 6 ft Weight 218 lb 6 oz BMI 29.6 BP 128/92 H Blood Pressure Location Rt brachial Position Sitting Pulse 100 Pulse Source Pulse Oximeter Pulse Oximetry (%) 96 Intake Visit Reasons: 4 month follow up-LVM Intake Note: Patient presents for follow up Allergies No Known Allergies Allergy (Verified 10/18/23 14:35) Medication List - Last Reconciled 10/18/23 by FERNANDEZ Bills acetaminophen (Tylenol) 325 mg PO QID PRN amitriptyline 50 mg PO BEDTIME 30 days cyclobenzaprine 5 mg PO BEDTIME magnesium oxide 400 mg PO DAILY 30 days melatonin 3 - 6 mg (1 - 2 x 3 mg) PO BEDTIME 90 days ondansetron 4 mg PO Q8H 30 days topiramate 25 mg PO BID 30 days vitamin B comp and C no.3 (B Complex Plus Vitamin C) 1 cap PO DAILY HPI Comments Details: 48-yr-old male presents for f/u visit of work related post concussive syndrome and neck pain. Patient was previously seen by our colleague Kaitlyn Frausto NP. Pt reports that he was discharged from pain management, as he was not making gains in regards to his neck pain. The neck pain is left sided sharp or dull pain. Triggered by cervical movement. 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 He has been able to be little bit more physically active. He continues to have headaches. The headaches are left dull aching frontal or occipital, which come on suddenly. This is a/w left ear ringing, mild phonophobia, phonophobia, cognitive difficulties. Has not been having as much nausea w/ the headaches. These are triggered by louder environments or just come out of the blue. For instance, shift change at work can induce headache and associated symptoms. Headache is daily, comes and goes. Tylenol or Excedrin. Can still have bouts of dizziness. Still stumbles at times. He still has STM lapses and more word finding difficulties. 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 [facility] Medical History Concussion Surgical History H/O hernia repair Family History Mother Cancer Social History Alcohol intake: current Alcohol intake frequency: a few times a week Alcohol type: beer, wine and hard liquor Patient Tobacco Use Status: Former Tobacco user Substance Use Type: Caffiene Physical Exam Vital Signs: Last Vital Signs Pulse 100 10/18/23 14:32 BP 128/92 H 10/18/23 14:32 Pulse Ox 96 10/18/23 14:32 BMI result Body Mass Index 29.6 Const General: cooperative and no acute distress Resp Effort & Inspection: normal respiratory effort and able to speak in complete sentences Neuro Other: Alert and oriented x3 w/ some STM lapses. Photophobia Cranial nerves: Yes CN's II-XII intact bilaterally Psych Appearance: grossly normal Speech and movement: Normal speech and movement present Affect: normal affect Attitude: cooperative Assessment & Plan Assessment & Plan (1) Postconcussion syndrome: Code(s): F07.81 - Postconcussional syndrome Category: Medical (2) Vertigo: Code(s): R42 - Dizziness and giddiness Category: Medical (3) Cervicalgia: Code(s): M54.2 - Cervicalgia Category: Medical Plan For cervicalgia: Continue cyclobenzaprine 5 mg qHS prn neck muscle tightness and pain. Continue PT exercises. Continue to slowly increase physical activity. For overall postconcussive management: Trial loop earplugs- engage 2- as this may reduce phonophobia symptoms. Monitor cognition Monitor sleep For acute postconcussive migraine headache treatment: Trial Sumatriptan 100mg tab, 1/2 - 1 tab (50-100mg) at onset of headache, may repeat in 2 hours. Max of 2 tabs (200mg) per 24 hours. May adjunct with OTC Tylenol 650mg q 4 hours, Ibuprofen 600mg q 6 hours, or Naproxen 440mg q 12 hrs prn. For postconcussive migraine prevention treatment: Stop Topiramate- not effective and likely worsening cognitive s/s. Continue Amitirptyline 50 mg qhs- may be benefitting cervicalgia as well Continue Magnesium 400 mg qHS. Continue Vit B complex OTC. Trial propranolol ER 60 mg q.h.s.. Previous prevention treatment trials: Topiramate- ineffective and not tolerated. Future considerations: CGRP MaB Patient may continue to work full-time with the following restrictions: No inmate contact. Workers accommodation form completed today. Written instruction shared with patient. Follow-up in 3-4 months or sooner as needed. Medications: New propranolol ER 60 mg PO BEDTIME 30 days 30 caps 3RF sumatriptan succinate (0.5 - 1 x 100 mg) 50 - 100 mg orally at onset of headache, may repeat in 2 hrs PRN; max 2 tabs per day or 4 tabs/week (may take with Ibuprofen) 30 days 12 tabs 6RF migraine headache Refilled cyclobenzaprine 5 mg PO BEDTIME 30 tabs 6RF magnesium oxide 400 mg PO DAILY 30 days 30 tabs 6RF amitriptyline 50 mg PO BEDTIME 30 days 30 tabs 6RF Discontinued topiramate Discontinued Reason: Doctor's Order 25 mg PO BID 30 days 60 tabs 4RF Coding Level of Care Code Est Pt Level 4 (00922) Diagnoses Postconcussion syndrome F07.81 Vertigo R42 Cervicalgia M54.2
== END 2023-10-18 15:34 | disposition home or self-care (01) ==
PROVIDERS: PCP Internal Medicine; Visit Provider Nurse Practitioner Family
DX: F07.81 Postconcussional syndrome (principal); R42 Dizziness and giddiness; M54.2 Cervicalgia; Z04.2 Encounter for examination and observation following work accident
CPT/HCPCS: 99214

== ENCOUNTER → 2023-10-18 14:30 | Outpatient (BNVA) | payer OTHER, SELFPAY | PROVIDERS: PCP Internal Medicine; Visit Provider Nurse Practitioner Family | DX: F07.81 Postconcussional syndrome (principal); R42 Dizziness and giddiness; M54.2 Cervicalgia; Z79.899 Other long term (current) drug therapy | CPT/HCPCS: 99212 ==

== ENCOUNTER 2024-04-02 07:27 | Outpatient (AMB) | payer OTHER, SELFPAY ==
[2024-04-02 07:30] VITALS: BP 130/90
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
== END 2024-04-02 08:52 | disposition home or self-care (01) ==
PROVIDERS: PCP Internal Medicine; Visit Provider Nurse Practitioner Family
DX: F07.81 Postconcussional syndrome (principal); R42 Dizziness and giddiness; M54.2 Cervicalgia; R41.82 Altered mental status, unspecified; R47.89 Other speech disturbances
CPT/HCPCS: 99214

== ENCOUNTER → 2024-04-02 07:27 | Outpatient (BNVA) | payer OTHER, SELFPAY | PROVIDERS: PCP Internal Medicine; Visit Provider Nurse Practitioner Family | DX: F07.81 Postconcussional syndrome (principal); F09 Unspecified mental disorder due to known physiological condition; R42 Dizziness and giddiness; M54.2 Cervicalgia; R41.82 Altered mental status, unspecified; R47.89 Other speech disturbances | CPT/HCPCS: 99212 ==

== ENCOUNTER 2024-04-25 12:40 | Outpatient (REF) | payer OTHER, SELFPAY ==
[2024-04-25] MEDS: gadobutroL 10 ML VIAL IVPUSH (13:26)
== END 2024-04-25 12:41 | disposition home or self-care (01) ==
LOC: HO.MRI 12:40
PROVIDERS: PCP Internal Medicine; Visit Provider Nurse Practitioner Family
DX: R41.82 Altered mental status, unspecified (principal); R47.89 Other speech disturbances
CPT/HCPCS: 70553; A9585

== ENCOUNTER → 2024-06-06 11:33 | Outpatient (REF) | payer OTHER, SELFPAY ==
--- OUTSIDE RECORDS SUMMARY | 2024-06-06 11:36 | XMS_ITS | Clinical Summary ---
Author Organization [facility] ity Address [address] [place] [address] Care Team Providers Care Machine Binding Folder Name Role Phone Joseph Sears MD Primary Care Provider Allergies No known active allergies Active Problems Problem Noted Date Diagnosed Date HLD (hyperlipidemia) 10/05/2023 Chronic migraine without aur a without status migrainosus, not intractable 09/23/2022 Peyronie's disease 03/18/2021 Rash and nonspecific skin eruption 03/18/2021 Immunizations Name Administration Dates Next Due Moderna SARS-CoV-2 COVID-19, mRNA, LNP-S, preservative free 05/18/2021,06/13/2020,05/14/2020 Tdap Tetanus diptheria acell ular pertussis (Boostrix; Adacel) 7yo and older 09/23/2022 Surgical History Surgery Date Site/Laterality Comments FOOT SURGERY PROCEDURE: HISTORICAL FOOT SURGERY; COMMENT: as child HERNIA REPAIR PROCEDURE: HISTORICAL HERNIA REPAIR/UMB; COMMENT: 2016 COLONOSCOPY 11/03/2021 PROCEDURE: HISTORICAL COLONOSCOPY; COMMENT: negative OTHER SURGICAL HISTORY PROCEDURE: HISTORY OTHER; COMMENT: RFA cervical spine Medical History Medical History Date Comments Peyronie's disease DX:Peyronie's disease Family History Medical History Relation Name Comments No Known Problems Father Other: Other Maternal Grandmother Alzheim er's dementia Other cancer Mother ovarian in 30s Other: Other Mother stomach, liver cancer Brain Aneurysm Paternal Grandmother Prostate cancer Neg Hx Relation Name Status Comments Brother Alive Father Alive Maternal Grandfather Maternal Grandmother Mother Alive Paternal Grandfather Paternal Grandmother Social History Tobacco Use Types Packs/Day Years Used Date Smoking Tobacco: Former Cigarettes Smokeless Tobacco: Never Alcohol Use Standard Drinks/Week Comments Not Currently 14 (1 standard drink = 0.6 oz pu re alcohol) Sex and Gender Information Value Date Recorded Sex Assigned at Not on file Gender Identity Not on file Sexual Orientation Not on file Job Start Date Occupation Industry Not on file Not on file Not on file Obstetrics History Last Filed Vital Signs Vital Sign Reading Time Taken Comments Blood Pressure 122/78 09/28/2023 1:36 PM EDT Pulse 97 01/13/2023 1:33 PM EDT auto cuff Temperature - - Respiratory Rate - - Oxygen Saturation - - Inhaled Oxygen Concentration - - Weight 99.3 kg (218 lb 14.4 oz) 09/28/2023 1:36 PM EDT Height 182.9 cm (6') 09/23/2022 11:31 AM EDT Body Mass Index 29.69 09/23/2022 11:31 AM EDT Plan of Treatment Upcoming Encounters Date Type Department Care Team (Late st Contact Info) Description 10/03/2024 3:30 PM EDT Office Visit Internal Medicine - [address] [address] Sukhdeep Ledesma NP [address] [place] [id number] Health Maintenance Due Date Last Done Comments Hepatitis B Vaccines (1 of 3 - 19+ 3-dose series) 01/22/1995 Depression Screening 03/30/2022 HIV Screening 03/30/2022 Hepatitis C Screening 03/30/2022 Social Influencers of Health Screening 03/30/2022 COVID-19 Vaccine (4 - 2023-2 5 season) 2023 05/18/2021, 06/13/2020, 05/14/2020 Influenza Vaccine (#1) 2023 Cholesterol Screening (Lipid Panel) 10/03/2028 10/04/2023 Colorectal Cancer Screening: Colonoscopy 11/08/2031 DTaP,Tdap,and Td Vaccines (2 - Td or Tdap) 09/23/2032 09/23/2022 HIB Vaccines Aged Out No longer eligi ble based on patient's age to complete this topic HPV Vaccines Aged Out No longer eligi ble based on patient's age to complete this topic Hepatitis A Vaccines Aged Out No long er eligible based on patient's age to complete this topic IPV Vaccines Aged Out No longer eligi ble based on patient's age to complete this topic MMR Vaccines Aged Out No longer eligi ble based on patient's age to complete this topic Meningococcal ACWY Vaccine Aged Out N o longer eligible based on patient's age to complete this topic Pneumococcal Vaccine: Pediatrics (0 to 5 Years) and At-Risk Patients (6 to 64 Years) Aged Out No longer eligible b ased on patient's age to complete this topic RSV Immunization Patients Under 20 months Aged Out No longer eligible b ased on patient's age to complete this topic Varicella Vaccines Aged Out No longer eligible based on patient's age to complete this topic Care Teams Machine Binding Folder Relationship Specialty Start Date End Date Joseph [facility] [address] [facility] [id number] PCP - General Internal Medicine 04/19/24
--- NOTE | 2024-06-06 11:37 | EEG_ITS ---
This is a 16-channel EEG with an EKG lead. The patient is reported awake during the tracing. Background EEG rhythm is 10 to 14 hertz, 5 to 20 microvolt posteriorly, lower amplitude fast anteriorly. Intermittently mostly left temporal sharply contoured theta range discharges were noted and occasionally in right hemisphere. No definite sharp wave or spike were seen. Photic stimulation does not produce any significant abnormality. Hyperventilation is unremarkable. Cardiac lead does not reveal any significant abnormality. IMPRESSION: Mildly abnormal EEG, though not diagnostic of seizure disorder. I recommend ambulatory EEG for further evaluation. MD FARHAT Gallegos/GEOFF / [id number]
== END | disposition home or self-care (01) ==
LOC: HO.NEURO 11:33
PROVIDERS: PCP Internal Medicine; Visit Provider Nurse Practitioner Family
DX: R47.89 Other speech disturbances (principal); R41.82 Altered mental status, unspecified

== ENCOUNTER 2024-08-09 07:30 | Outpatient (AMB) | payer OTHER, SELFPAY ==
--- OUTSIDE RECORDS SUMMARY | 2024-08-09 07:32 | XMS_ITS | Clinical Summary ---
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 Name Role Phone Joseph Sears MD Primary Care Provider [phone] Allergies No known active allergies Active Problems [...] Recorded Sex Assigned at Not on file Legal Sex Male 2:24 PM EST Gender Identity Not on file Sexual Orientation Not on file Obstetrics History Last Filed [...] PM EDT Office Visit Internal Medicine - [address] [phone] Sukhdeep Ledesma, ARELIS [address] [place] [address] Health Maintenance Due Date Last Done Comments Hepatitis B Vaccines (1 of 3 - 19+ 3-dose series) 01/22/1995 Depression Screening 03/30/2022 HIV Screening 03/30/2022 Hepatitis C Screening 03/30/2022 Social Influencers of Health Screening 03/30/2022 COVID-19 Vaccine (4 - 2023-2 5 season) 2023 05/18/2021, 06/13/2020, 05/14/2020 Influenza Vaccine (Season Ended) 2024 Cholesterol Screening (Lipid Panel) 10/03/2028 10/04/2023 Colorectal [...] patient's age to complete this topic Meningococcal B Vaccine Aged Out No l onger eligible based on patient's age to complete [...] on patient's age to complete this topic Insurance [employer] Care Teams Portable Irrigation Operator Relationship Specialty Start Date End Date Joseph Sears MD [address] [place] [id number] PCP - General Internal Medicine 04/19/24
--- NOTE | 2024-08-09 07:37 | A.OFFVIS_ITS ---
Vital Signs 08/09/24 07:38 Height 6 ft Weight 216 lb BMI 29.3 Pulse 84 Pulse Source Pulse Oximeter Pulse Oximetry (%) 98 Oxygen Delivery Method Room Air Intake Visit Reasons: Follow Up 4mo Intake Note: patient presents for follow up EEG done 06/06/24 and labs 04/25/24 Allergies No Known Allergies Allergy (Verified 08/09/24 07:45) Medication List - Last Reconciled 08/09/24 by FERNANDEZ Bills acetaminophen (Tylenol) 325 mg PO QID PRN amitriptyline 50 mg PO BEDTIME 30 days cyclobenzaprine 5 mg PO BEDTIME magnesium oxide 400 mg PO DAILY 30 days melatonin 3 - 6 mg (1 - 2 x 3 mg) PO BEDTIME 90 days ondansetron 4 mg PO Q8H 30 days sumatriptan succinate 50 - 100 mg orally at onset of headache, may repeat in 2 hrs PRN; max 2 tabs per day or 4 tabs/week (may take with Ibuprofen) 30 days vitamin B comp and C no.3 (B Complex Plus Vitamin C) 1 cap PO DAILY HPI Comments Details: 48-yr-old male presents for f/u visit of work related post concussive syndrome and neck pain. Since last visit, patient return to work restrictions. Initially, he doing well- was even able to work a double shift without diffic ulty. However, recently he states that work comp has stopped covering his medication orders, and thus he has started adding increased headaches and neck pain again. The headaches are left dull aching frontal or occipital, which come on suddenly. This is a/w left ear ringing, mild phonophobia, phonophobia, nausea/gagging, cognitive difficulties. Also has occasional left occipital (at point of contact of his original head injury) sudden pain, like being hit in the head. It is now difficult for him to work through even 1 shift. He is having increased neck pain and tightness. Feels that his last treatment intervention from pain management has lost effectiveness. He has not had any further episodes similar to the episode he had last summer. He states he is trying to adhere to a healthier fluid and diet regimen. Brain MRI with and without contrast was unremarkable. Day 2 and day 3 of ambulatory 72 hour EEG was normal. [facility] Medical History Concussion Surgical History H/O hernia repair Family History Mother Cancer Social History Alcohol intake: current Alcohol intake frequency: a few times a week Alcohol type: beer, wine and hard liquor Patient Tobacco Use Status: Former Tobacco user Substance Use Type: Caffiene Physical Exam Vital Signs: Last Vital Signs Pulse 84 08/09/24 07:38 Pulse Ox 98 08/09/24 07:38 Oxygen Delivery Method Room Air 08/09/24 07:38 BMI result Body Mass Index 29.3 Const General: cooperative and no acute distress Resp Effort & Inspection: normal respiratory effort and able to speak in complete sentences Neuro Other: Alert and oriented x3 Photophobic Bilateral posterior cervical tightness. Bilateral Spurling induces non-radiating posterior cervical pain. Left shoulder rests lower than right at rest and w/ shoulder shrug. General: deep tendon reflexes 2+ bilaterally Cranial nerves: Yes CN's II-XII intact bilaterally Gait exam (Neuro): Normal gait present Motor exam (neuro): 5/5 motor strength present throughout Psych Appearance: grossly normal Speech and movement: Normal speech and movement present Affect: normal affect Attitude: cooperative Assessment & Plan Assessment & Plan (1) Postconcussion syndrome: Comment: Posttraumatic, Status post fall with positive head strike and loss of consciousness on ice in June 2021. Code(s): F07.81 - Postconcussional syndrome Category: Medical (2) Migraine without aura: Comment: Posttraumatic, Status post fall with positive head strike and loss of consciousness on ice in June 2021. Code(s): G43.009 - Migraine without aura, not intractable, without status migrainosus Category: Medical (3) Cervicalgia: Comment: Posttraumatic, Status post fall with positive head strike and loss of consciousness on ice in June 2021. Code(s): M54.2 - Cervicalgia Category: Medical (4) Cognitive dysfunction: Comment: Posttraumatic, Status post fall with positive head strike and loss of consciousness on ice in June 2021. Code(s): F09 - Unspecified mental disorder due to known physiological condition Category: Medical Plan For posttraumatic cervicalgia: We will refer back to pain management Resume cyclobenzaprine 5 mg qHS prn neck muscle tightness and pain. Continue PT exercises. Continue to slowly increase physical activity. For overall postconcussive management: May use noise reduction strategies such as- loop earplugs- engage 2- as this may reduce phonophobia symptoms. Continue to optimize good self-care, including maintaining regular physical activity, eating healthy well-balanced diet, and maintaining a regular sleep schedule. For acute postconcussive migraine headache treatment: Continue Sumatriptan 100mg tab, 1/2 - 1 tab (50-100mg) at onset of headache, may repeat in 2 hours. Max of 2 tabs (200mg) per 24 hours. May adjunct with OTC Tylenol 650mg q 4 hours, Ibuprofen 600mg q 6 hours, or Naproxen 440mg q 12 hrs prn. For postconcussive migraine prevention treatment: Resume Amitriptyline 50 mg qhs- as patient's symptoms have worsened upon stopping this Resume Magnesium 400 mg qHS. Continue Vit B complex OTC. Patient never started, howeverr had had improvements thus discontinue propanolol ER 60 mg q.h.s. order. Previous prevention treatment trials: Topiramate- ineffective and not tolerated. Future considerations: CGRP MaB Patient may continue to work full-time without restriction. For episode of AMS a/w agitation and speaking in a foreign language: Baseline EEG did not show epileptic activity, though was considered mildly abnormal with intermittent left temporal contour theta range discharges occasionally right hemisphere. Follow-up 72 hour ambulatory EEG- day 2 and day 2 3 were normal. We will request results of day 1. Brain MRI with and without contrast was unremarkable. Discussed that we can not clearly state what the etiology of the episode was, may have been provoked by multifactorial etiologies such as dehydration, heat, alcohol intake. No indications that patient has a seizure disorder. Patient encouraged to continue optimizing his good self-care regimen, including maintaining healthy fluid and dietary intake. Patient advised to alert dose if he has any further similar episodes. Will follow-up upon review of above and patient to follow-up in clinic in 3-4 months or sooner prn. Orders: Referrals Pain Management Referral M54.2 - Cervicalgia Medications: Refilled amitriptyline 50 mg PO BEDTIME 30 days 30 tabs 6RF magnesium oxide 400 mg PO DAILY 30 days 30 tabs 6RF cyclobenzaprine 5 mg PO BEDTIME 30 tabs 6RF melatonin 3 - 6 mg (1 - 2 x 3 mg) PO BEDTIME 90 days 180 tabs 1RF amitriptyline 50 mg PO BEDTIME 30 days 30 tabs 6RF Discontinued propranolol ER Discontinued Reason: Doctor's Order 60 mg PO BEDTIME 30 days 30 caps 3RF Coding Level of Care Code Est Pt Level 4 (89092) Diagnoses Postconcussion syndrome F07.81 Migraine without aura G43.009 Cervicalgia M54.2 Cognitive dysfunction F09
[2024-08-09 07:38] VITALS: PULSE 84; O2SAT 98; BMI 29.3
== END 2024-08-09 08:27 | disposition home or self-care (01) ==
LOC: HO.HSMS 07:31
PROVIDERS: PCP Internal Medicine; Visit Provider Nurse Practitioner Family
DX: F07.81 Postconcussional syndrome (principal); G43.009 Migraine without aura, not intractable, without status migrainosus; M54.2 Cervicalgia; F09 Unspecified mental disorder due to known physiological condition
CPT/HCPCS: 99214

== ENCOUNTER → 2024-08-09 07:30 | Outpatient (BNVA) | payer OTHER, SELFPAY | PROVIDERS: PCP Internal Medicine; Visit Provider Nurse Practitioner Family | DX: G43.009 Migraine without aura, not intractable, without status migrainosus (principal); M54.2 Cervicalgia; F09 Unspecified mental disorder due to known physiological condition; F07.81 Postconcussional syndrome | CPT/HCPCS: 99212 ==

== ENCOUNTER 2024-09-04 10:59 | Outpatient (AMB) | payer OTHER, SELFPAY ==
[2024-09-04 11:06] VITALS: BP 138/90; PULSE 92; RESP 16; O2SAT 99; BMI 28.9
--- NOTE | 2024-09-04 11:06 | A.OFFVIS_ITS ---
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: No Allergies No Known Allergies Allergy (Verified 09/04/24 11:07) Medication List - Last Reconciled 09/04/24 by Little Omalley LPN acetaminophen (Tylenol) 325 mg PO QID PRN amitriptyline 50 mg PO BEDTIME 30 days cyclobenzaprine 5 mg PO BEDTIME magnesium oxide 400 mg PO DAILY 30 days melatonin 3 - 6 mg (1 - 2 x 3 mg) PO BEDTIME 90 days ondansetron 4 mg PO Q8H 30 days sumatriptan succinate 50 - 100 mg orally at onset of headache, may repeat in 2 hrs PRN; max 2 tabs per day or 4 tabs/week (may take with Ibuprofen) 30 days vitamin B comp and C no.3 (B Complex Plus Vitamin C) 1 cap PO DAILY HPI HPI FU for Cervicalgia: Details: History of Present Illness The patient is a 49-year-old male presenting with recurrent axial neck pain and cervical radicular pain. Approximately six months ago, the patient began experiencing significant discomfort in the neck, initially managed with a cervical medial branch radiofrequency ablation, which provided temporary symptomatic relief. Now, the patient's symptoms have returned, presenting as a deep, constant ache at C2, averaging a pain score of 6 to 7 out of 10. The recurrent neck pain negatively impacts his daily life and occupational duties, particularly when driving or engaging in physical activities. To cope, he has adjusted his movements by using his shoulders instead of turning his neck. Previous interventions included nerve ablation offering temporary alleviation, yet pain has recurred. Additionally, a previous dermatological procedure for a superficial lesion provided brief relief but was not causative of the neck pain. Looking forward, the patient desires a resolution to his manageable chronic pain. Pain Description - Onset: Approximately six months ago. - Quality: Deep, constant ache. - Location: Centrally at C4/C5, with cervical radiation. - Severity: 6 to 7 out of 10. - Radiation: Cervical region to extremities ( shoots down from neck to feet ). - Exacerbating Factors: Driving, physical activities at work, turning the neck. - Relieving Factors: Temporary relief post-radiofrequency ablation. - Interference: Interferes with work duties and daily functional movement. Physical Exam - Musculoskeletal- Limited extension and lateral rotation of the cervical spine. Pain Management - Affect: The recurrent pain is significantly impacting daily living and occupational functioning. - Analgesia: Post-radiofrequency ablation with six months relief. Currently experiences persistent pain rating at 6 to 7 out of 10. - Adverse Effects: None reported from previous treatments. - Activities of Daily Living: Altered movement in daily tasks, particularly with neck mobility. - Aberrant Drug Related Behaviors: None reported or suspected. PFSH Medical History Concussion Surgical History H/O hernia repair Family History Mother Cancer Social History Alcohol intake: current Alcohol intake frequency: a few times a week Alcohol type: beer, wine and hard liquor Patient Tobacco Use Status: Former Tobacco user Substance Use Type: Caffiene Physical Exam Vital Signs: Last Vital Signs Pulse 92 09/04/24 11:06 Resp 16 09/04/24 11:06 BP 138/90 H 09/04/24 11:06 Pulse Ox 99 09/04/24 11:06 Oxygen Delivery Method Room Air 09/04/24 11:06 BMI result Body Mass Index 28.9 Assessment & Plan Assessment & Plan (1) Cervical facet joint syndrome: Code(s): M47.812 - Spondylosis without myelopathy or radiculopathy, cervical region Category: Medical (2) Whiplash injury to neck: Code(s): S13.4XXA - Sprain of ligaments of cervical spine, initial encounter Category: Medical (3) Cervicalgia: Comment: Posttraumatic, Status post fall with positive head strike and loss of consciousness on ice in June 2021. Code(s): M54.2 - Cervicalgia Category: Medical Plan Plan - We we will seek authorization for cervical medial branch nerve stimulation once again since this was previously denied in favor of trial of cervical medial branch radiofrequency ablation. While he did get 6 months of relief from the cervical medial branch RFA, he is interested in alternative strategies that may yield longer-term relief with less risk of adverse effects with repeated administrations. He has a chronic neck pain that has not been responsive to a range of interventions and he is not happy with only 6 months of relief from a radiofrequency ablation. If the medial branch nerve stimulation is denied, we can consider PRP administration to the cervical facets for ongoing axial neck pain. - Follow-up appointments for monitoring progress in response to pain interventions. Patient was informed and verbally consented to the use of an ambient scribe for clinic note documentation during this visit. Discussion Notes I discussed with the patient the options for managing his recurrent neck pain, including the likelihood of receiving approval for cervical medial branch nerve stimulation or PRP injection at C4 versus C5 levels. I informed him about continuing functional rehabilitation to mitigate pain-related limitations. We discussed potential insurance authorization constraints and alternative therapies, emphasizing follow-up care and symptom tracking for future appointments. Patient Instructions - Avoid activities that exacerbate neck pain, especially vigorous neck movements. - Follow up regarding the authorization of suggested nerve pain management. - Consult for physical therapy sessions as part of ongoing rehabilitation. - Report any increase in pain severity, changes in symptoms, or any adverse reactions promptly. Coding Level of Care Code Est Pt Level 4 (14035) Diagnoses Cervical facet joint syndrome M47.812 Whiplash injury to neck S13.4XXA Cervicalgia M54.2
--- OUTSIDE RECORDS SUMMARY | 2024-09-04 12:25 | XMS_ITS | Clinical Summary ---
Author Organization [facility] ity Address [address] [place] [address] Care Team Providers Care Chocolate Temperer Name Role Phone Joseph Sears MD Primary Care Provider [phone] Allergies No known active allergies Active Problems [...] PM EDT Office Visit Internal Medicine - [address] [phone] Sukhdeep Ledesma, ARELIS [address] [place] [id number] Health Maintenance Due Date Last Done Comments [...] this topic Insurance [employer] Care Teams Chocolate Temperer Relationship Specialty Start Date End Date Joseph Sears MD [address] [place] [id number] PCP - General Internal Medicine 04/19/24
== END 2024-09-04 11:40 | disposition home or self-care (01) ==
LOC: HO.PMC 11:00
PROVIDERS: PCP Internal Medicine; Referring Provider Nurse Practitioner Family; Visit Provider Internal Medicine
DX: M47.812 Spondylosis without myelopathy or radiculopathy, cervical region (principal); S13.4XXA Sprain of ligaments of cervical spine, initial encounter; M54.2 Cervicalgia
CPT/HCPCS: 99214

== ENCOUNTER → 2024-09-04 10:59 | Outpatient (BNVA) | payer OTHER, SELFPAY | PROVIDERS: PCP Internal Medicine; Referring Provider Nurse Practitioner Family; Visit Provider Internal Medicine | DX: M47.812 Spondylosis without myelopathy or radiculopathy, cervical region (principal); S13.4XXA Sprain of ligaments of cervical spine, initial encounter | CPT/HCPCS: 99212 ==

== ENCOUNTER 2024-12-06 08:49 | Outpatient (AMB) | payer OTHER, SELFPAY ==
[2024-12-06 09:01] VITALS: BP 140/100; PULSE 110; O2SAT 99; BMI 31.1
--- NOTE | 2024-12-06 09:01 | A.OFFVIS_ITS ---
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 Pt reports he has been able to work w/o restrictions, even working overtime. He reports he is still having some neck discomfort, however he has been able to manage this primarily on his own. As [facility] at the shelter, sharla ts him from seen the PT (simply due to location and time constraints). He has again started exercising, and is being mindful of his position and posture while exercising. He is not regularly having to take the sumatriptan, and so he is wondering if he can begin to wean off of the amitriptyline. He states he has not needing to take the cyclobenzaprine at this time. He can still be forgetful at times, using strategies to help. He has not had any further episodes similar to the episode he had last summer. He states he is trying to adhere to a healthier fluid and diet regimen. Brain MRI with and without contrast was unremarkable. Day 2 and day 3 of ambulatory 72 hour EEG was normal. [facility] Medical History Concussion Surgical History H/O hernia repair Family History Mother Cancer Social History Alcohol intake: current Alcohol intake frequency: a few times a week Alcohol type: beer, wine and hard liquor Patient Tobacco Use Status: Former Tobacco user Substance Use Type: Caffiene Physical Exam Vital Signs: Last Vital Signs Pulse 110 H 12/06/24 09:01 BP 140/100 H 12/06/24 09:01 Pulse Ox 99 12/06/24 09:01 Oxygen Delivery Method Room Air 12/06/24 09:01 BMI result Body Mass Index 31.1 Const General: cooperative and no acute distress Resp Effort & Inspection: normal respiratory effort and able to speak in complete sentences Neuro Other: Alert and oriented x3 Decreased photophobia Bilateral posterior cervical tightness. General: moves all extremities and deep tendon reflexes 2+ bilaterally Cranial nerves: Yes CN's II-XII intact bilaterally Gait exam (Neuro): Normal gait present Motor exam (neuro): 5/5 motor strength present throughout Psych Appearance: grossly normal Speech and movement: Normal speech and movement present Affect: normal affect Attitude: cooperative Assessment & Plan Assessment & Plan (1) Postconcussion syndrome: Comment: Posttraumatic, Status post fall with positive head strike and loss of consciousness on ice in June 2021. Code(s): F07.81 - Postconcussional syndrome Category: Medical (2) Migraine without aura: Comment: Posttraumatic, Status post fall with positive head strike and loss of consciousness on ice in June 2021. Code(s): G43.009 - Migraine without aura, not intractable, without status migrainosus Category: Medical Qualifiers: Status migrainosus presence: without status migrainosus Intractability: not intractable Qualified Code(s): G43.009 - Migraine without aura, not intractable, without status migrainosus (3) Cervicalgia: Comment: Posttraumatic, Status post fall with positive head strike and loss of consciousness on ice in June 2021. Code(s): M54.2 - Cervicalgia Category: Medical (4) Cognitive dysfunction: Comment: Posttraumatic, Status post fall with positive head strike and loss of consciousness on ice in June 2021. Code(s): F09 - Unspecified mental disorder due to known physiological condition Category: Medical Plan For posttraumatic cervicalgia: May use cyclobenzaprine 5 mg qHS prn neck muscle tightness and pain. Continue PT exercises. Continue to slowly increase physical activity. For overall postconcussive management: May use noise reduction strategies such as- loop earplugs- engage 2- as this may reduce phonophobia symptoms. Continue to optimize good self-care, including maintaining regular physical activity, eating healthy well-balanced diet, and maintaining a regular sleep schedule. For acute postconcussive migraine headache treatment: Continue Sumatriptan 100mg tab, 1/2 - 1 tab (50-100mg) at onset of headache, may repeat in 2 hours. Max of 2 tabs (200mg) per 24 hours. May adjunct with OTC Tylenol 650mg q 4 hours, Ibuprofen 600mg q 6 hours, or Naproxen 440mg q 12 hrs prn. For postconcussive migraine prevention treatment: Continue Amitriptyline 50 mg qhs for at least another 3 months, at which point we will reach out to patient to assess the status. * If headache/migraine frequency is still very intermittent or absent, we will slowly begin to reduce amitriptyline nightly dose by 5 mg every 1-2 weeks, and closely monitor response. * If patient is needing to use sumatriptan or alternate OTC analgesic greater than 6 times per month, or is having more than 1-2 severe migraine/headache days per month, would continue on amitriptyline Continue Magnesium 400 mg qHS. Continue melatonin 3-6 mg daily at bedtime Patient has stopped Vit B complex OTC. Note, propranolol ER 60 mg q.h.s. was previously ordered, however patient never started it. Previous prevention treatment trials: Topiramate- ineffective and not tolerated. Future considerations: CGRP MaB Patient may continue to work full-time without restriction. For episode of AMS a/w agitation and speaking in a foreign language: Baseline EEG did not show epileptic activity, though was considered mildly abnormal with intermittent left temporal contour theta range discharges occa sionally right hemisphere. Follow-up 72 hour ambulatory EEG- within normal limits. Brain MRI with and without contrast was unremarkable. No clear etiology for this isolated episode, likely provoked by multifactorial etiologies such as dehydration, heat, alcohol intake. There are no indications that patient has a seizure disorder. Continue to optimize good self-care regimen, including maintaining healthy fluid and dietary intake. Patient advised to alert us if he has any further similar episodes. Will follow-up upon review of above and patient to follow-up in clinic in 6 months or sooner prn. Coding Level of Care Code Est Pt Level 4 (99618) Diagnoses Postconcussion syndrome F07.81 Migraine without aura and without status migrainosus, not intractable G43.009 Status migrainosus presence: without status migrainosus Intractability: not intractable Cervicalgia M54.2 Cognitive dysfunction F09
--- OUTSIDE RECORDS SUMMARY | 2024-12-06 09:03 | XMS_ITS | Clinical Summary ---
Author Organization [address] Address [address] [place] [address] Phone Care Team Providers Care Resource Conservation Manager Name Role Phone Joseph Sears MD Primary Care Provider [phone] Allergies No known active allergies Medications clotrimazole-be tamethasone (LOTRISONE) 1-0.05 % cream APPLY 2 TIMES DAILY ON AFFECTED AREA ON GENTIAL FOR 2 WEEKS. MY REPEAT TREATMENT AFTER 1 MONTH IF SYMPTOMS RETURN. 30 g 5 Active amitriptyline (ELAVIL) 50 mg tablet Take 1 tablet (50 mg total) by mouth at bedtime. 5 Active melatonin 3 mg tablet Take 1 tablet (3 mg total) by mouth at bedtime. 4 Active SUMAtriptan (IMITREX) 100 mg tablet Take 1 tablet (100 mg total) by mouth. PLEASE SEE ATTACHED FOR DETAILED DIRECTIONS 5 Active Active Problems Problem Noted Date Diagnosed Date HLD (hyperlipidemia) 10/05/2023 Chronic migraine without aur a without status migrainosus, not intractable 09/23/2022 Peyronie's disease 03/18/2021 Rash and nonspecific skin eruption 03/18/2021 Encounters Date Type Department Care Team Description 10/03/2024 3:30 PM EDT Office Visit Internal Medicine - [address] [phone] Sukhdeep Ledesma NP Adult general medical exam (Primary Dx); Elevated blood sugar; Screening, anemia, deficiency, iron from Last 3 Months Immunizations Name Administration Dates Next Due Moderna SARS-CoV-2 COVID-19, mRNA, LNP-S, preservative free 05/18/2021,06/13/2020,05/14/2020 Tdap Tetanus diptheria acell ular pertussis (Boostrix; Adacel) 7yo and older 09/23/2022 Surgical History Surgery Date Site/Laterality Comments FOOT SURGERY PROCEDURE: HISTORICAL FOOT SURGERY; COMMENT: as child HERNIA REPAIR PROCEDURE: HISTORICAL HERNIA REPAIR/UMB; COMMENT: 2015 COLONOSCOPY 11/03/2021 PROCEDURE: HISTORICAL COLONOSCOPY; COMMENT: negative [...] Smoking Tobacco: Former Cigarettes Smokeless Tobacco: Never Tobacco Cessation:Counseling Given: Not Answered Alcohol Use Standard Drinks/Week Comments Not Currently 14 (1 standard drink = 0.6 oz pu re alcohol) Housing Instability Answer Date Recorde d Are you worried that in the next 2 months you may not have stable housing? No 09/26/2024 Food Access & Nutrition Answer Date Rec orded Do you have access to a vari ety of food including fruits and vegetables? Yes 09/26/2024 Access to Healthcare Answer Date Record ed Within the last 3 months, ho w many times did you visit the emergency department for your medical care? 0 09/26/2024 Health Literacy Answer Date Recorded How often do you need to hav e someone help you when you read instructions, pamphlets, or other written material from your doctor or pharmacy? Never 09/26/2024 Caregiver: How often do you need to have someone help you when you read instructions, pamphlets, or other written material from your doctor or pharmacy? Not on file 09/26/2024 Financial Risk Answer Date Recorded How hard is it for you to pa y for the very basics like food, housing, medical care, and air conditioning / heating? Not very hard 09/26/2024 Transportation Answer Date Recorded Has the lack of transportati on kept you from meetings, work, or from getting things needed for daily living? No Has the lack of transportati on kept you from medical appointments or from getting medications? No 09/26/2024 Social Isolation Answer Date Recorded How often do you feel lonely or isolated from th ose around you? Never 09/26/2024 Food Risk Answer Date Recorded Within the past 12 months we worried whether our food would run out before we got money to buy more. Never true 09/26/2024 Within the past 12 months th e food we bought just didn't last and we didn't have money to get more. Never true 09/26/2024 Dependent Care Answer Date Recorded Do you need help finding or paying for care for your loved ones. For example, child adolescent care or elderly care for an older adult? No 09/26/2024 Education Answer Date Recorded Do you think completing more education or training, like finishing a GED, going to college, or learning a trade, would be helpful for you? No 09/26/2024 Employment and Income Answer Date Recor ded During the last four weeks, have you been actively looking for work? No 09/26/2024 Living Situation Answer Date Recorded What is your living situation? 0 09/26/2024 Sex and Gender Information Value Date Recorded Sex Assigned at Not on file Legal Sex Male 2:24 PM EST Gender Identity Not on file Sexual Orientation Not on file Obstetrics History Last Filed Vital Signs Vital Sign Reading Time Taken Comments Blood Pressure 118/70 10/03/2024 3:38 PM EDT Pulse 85 10/03/2024 3:08 PM EDT Temperature - - Respiratory Rate - - Oxygen Saturation - - Inhaled Oxygen Concentration - - Weight 102 kg (224 lb 3.2 oz) 10/03/2024 3:08 PM EDT Height 182.9 cm (6') 10/03/2024 3:08 PM EDT Body Mass Index 30.41 10/03/2024 3:08 PM EDT Plan of Treatment Upcoming Encounters Date Type Department Care Team (Late st Contact Info) Description 10/10/2025 11:30 AM EDT Office Visit Internal Medicine - [facility] [address] [place] [phone] Joseph Sears MD [address] [place] [address] Health Maintenance Due Date Last Done Comments Hepatitis B Vaccines (1 of 3 - 19+ 3-dose series) 01/22/1995 HIV Screening 03/30/2022 Hepatitis C Screening 03/30/2022 COVID-19 Vaccine (4 - 2023-2 5 season) 2023 05/18/2021, 06/13/2020, 05/14/2020 Influenza Vaccine (#1) 2024 Social Influencers of Health Screening 09/26/2025 09/26/2024 Cholesterol Screening (Lipid Panel) 10/03/2028 10/04/2023 Colorectal Cancer Screening: Colonoscopy 11/08/2031 DTaP,Tdap,and Td Vaccines (2 - Td or Tdap) 09/23/2032 09/23/2022 Depression Screening Completed 09/26/2024 HIB Vaccines Aged Out No longer eligi [...] 5 Years) and At-Risk Patients (6 to 49 Years) Aged Out No longer eligible b ased on patient's age to complete this topic RSV Immunization Patients Under 20 months Aged Out No longer eligible b ased on patient's age to complete this topic Varicella Vaccines Aged Out No longer eligible based on patient's age to complete this topic Insurance [facility] MEDICAID Care Teams Resource Conservation Manager Relationship Specialty Start Date End Date Joseph Sears MD [address] [place] [address] PCP - General Internal Medicine 04/19/24
== END 2024-12-06 10:01 | disposition home or self-care (01) ==
LOC: HO.HSMS 08:49
PROVIDERS: PCP Internal Medicine; Visit Provider Nurse Practitioner Family
DX: F07.81 Postconcussional syndrome (principal); G43.009 Migraine without aura, not intractable, without status migrainosus; F09 Unspecified mental disorder due to known physiological condition; M54.2 Cervicalgia
CPT/HCPCS: 99214

== ENCOUNTER → 2024-12-06 08:49 | Outpatient (BNVA) | payer OTHER, SELFPAY | PROVIDERS: PCP Internal Medicine; Visit Provider Nurse Practitioner Family | DX: M54.2 Cervicalgia (principal); F07.81 Postconcussional syndrome; G43.009 Migraine without aura, not intractable, without status migrainosus; F09 Unspecified mental disorder due to known physiological condition | CPT/HCPCS: 99212 ==